=== PATIENT | female | born 1975 | race African-American/Black ===

== ENCOUNTER 2018-04-24 17:02 | Emergency (ER) | payer SELFPAY ==
[~2018-04-24] VITALS: Ht 170.2 cm; Wt 111.0 kg
[2018-04-24 19:11] VITALS: BP 163/114
== END 2018-04-24 19:20 | disposition home or self-care (01) | DRG 156 ==
LOC: ED 17:02
PROC: 3E1B78Z Irrigation of Ear using Irrigating Substance, Via Natural or Artificial Opening (ICD-10-PCS; principal; 2018-04-24)
PROC: 3E1B78Z Irrigation of Ear using Irrigating Substance, Via Natural or Artificial Opening (ICD-10-PCS; 2018-04-24)
DX: H61.23 Impacted cerumen, bilateral (principal); I10 Essential (primary) hypertension; F17.210 Nicotine dependence, cigarettes, uncomplicated

== ENCOUNTER 2020-12-08 08:15 | Observation (INO) | payer SELFPAY ==
[2020-12-08] VITALS (8 sets, daily range): BP systolic 113–166; BP diastolic 49–103
[2020-12-08] MEDS ORDERED: PERCOCET 5/325M1 TAB PO (10:20)
--- NOTE | 2020-12-08 17:16 | NUR ---
RECIEVED REPORT FROM KEHINDE VARGAS
--- NOTE | 2020-12-08 19:30 | NUR ---
PATIENT RESTING IN BED AT THIS TIME-AWAKE AND ALERT. NEW IV SITE WAS STARTED TO LEFT HAND-#22 GAUGE BY RUTH BOUCHER. IVF NS PATENT AND INFUSING AT 125CC/HR ORDERED. ANCEF INFUSING AT THIS TIME ORDERED. VS STABLE. O2 SAT IS 94% ON RA. AFEBRILE. NO COMPLAINTS AT THIS TIME. SAFETY PRECAUTIONS REINFORCED. CALL LIGHT IN REACH. WILL CONT TO MONITOR.
--- NOTE | 2020-12-08 21:25 | NUR ---
PATIENT RESTING IN BED AT THIS TIME-AWAKE BUT RESTING. MEDICATED FOR POST-OP PAIN WITH PERCOCET 5/325MG PO. ABD BINDER APPLIED ORDERED. INCISION TO UMBILICAL REGION INTACT WITH DERMABOND-NO DRAINAGE NOTED. ABD IS SOFT WITH HYPOACTIVE BS. PATIENT HAS BEEN UP TO THE BSC TO VOID QS CLEAR YELLOW URINE. IVF NS PATENT AND INFUSING VIA LEFT HAND SITE AT 125CC/HR. SITE REMAINS HEALTHY. INSTRUCTED PATIENT ON USE OF IS Q1H WHILE AWAKE IN REPS OF 10-WILL REINFORCE NEEDED. LUNGS ARE CLEAR. SCD'S IN PLACE. NO PERIPHERAL EDEMA NOTED. PULSES ARE PALPABLE. SAFETY PRECAUTIONS REINFORCED. CALL LIGHT IN REACH. WILL CONT TO MONITOR.
[2020-12-09] VITALS: BP 114/69
--- NOTE | 2020-12-09 00:30 | NUR ---
PATIENT RESTING IN BED AT THIS TIME-EYES CLOSED AND RESPS ARE EVEN AND UNLABORED. APPEARS SLEEPING AT THIS TIME. IVF PATENT AND INFUSING VIA LEFT HAND IV SITE AT 125CC/HR. CALL LIGHT IN REACH. WILL CONT TO MONITOR.
--- NOTE | 2020-12-09 03:08 | NUR ---
RESTING QUIETLY AT THIS TIME WITH EYES CLOSED. RESPS ARE EVEN AND UNLABORED. IVF NS PATENT AND INFUSING VIA LEFT HAND SITE. CALL LIGHT IN REACH. WILL CONT TO MONITOR.
[2020-12-09 04:00] VITALS: BP 118/81
--- NOTE | 2020-12-09 04:29 | NUR ---
PATIENT RESTING IN BED AT THIS TIME-HAS BEEN UP TO THE BSC TO VOID QS CLEAR YELLOW URINE. IV SITE TO LEFT HAND REMAINS HEALTHY AT THIS TIME. IVF NS PATENT AND INFUSING AT 125CC/HR. ABD BINDER REMAINS IN PLACE. TAKING PO FLUIDS. CALL LIGHT IN REACH. WILL CON TO MONITOR.
--- NOTE | 2020-12-09 07:00 | NUR ---
RECIEVED REPORT FROM KEHINDE MOORE
[2020-12-09 07:43] VITALS: BP 126/77
--- NOTE | 2020-12-09 07:43 | NUR ---
PT RESTING IN SEMI FOWLERS POSITION. PT IS A/O X3. ASSESSMENT COMPLETED. BP 126/77, HR 73, O2 99% ON ROOM AIR. RESPIRATIONS ARE EVEN AND UNLABORED WITH NO DISTRESS NOTED. LUNG SOUNDS ARE CLEAR. HEART RHYTHM NORMAL. BOWEL SOUNDS ARE ACTIVE.LBM 12/07/20. STRONG PULSES. SCDS IN PLACE. SURGICAL SITE TO SPIKE CARDENAS NOTED. ABD BINDER IN PLACE. PT COMPLAINS OF 2/10 PAIN AT THIS TIME, REFUSES ANY MEDICAITONS. #22H LH INFUSING WITH IVF PER ORDER, SITE REMAINS HEALTHY AND PATENT. ALL SAFETY PRECAUTIONS ARE IN PLACE WITH CALL LIGHT IN REACH. WILL CONTNIUE TO MONITOR
[2020-12-09 08:27] VITALS: BP 126/77
--- NOTE | 2020-12-09 08:31 | NUR ---
#22G LH OCCULDED. NEW IV TO BE STARTED IF PT IS NOT DC.
[2020-12-09] MEDS ORDERED: NORVASC5 M1 PO (09:12)
--- NOTE | 2020-12-09 09:12 | NUR ---
DR GLEZ AT BEDSIDE
--- NOTE | 2020-12-09 10:55 | NUR ---
PT EDUCATED IN DC INSTRUCTIONS AND STEWART MEDICATIONS. SCHEDULE FOR DR WORTHY 12/18/20 @1115. PT VERBALIZED UNDERSTANDING. CARD FOR AMA OFFICE IF WANTING PCP. IV REMOVED DUE TO BEING OCCULDED. PT STATES TRANSPORTATION WILL ARRIVED AROUND 1500. ALL SAFETY PRECAUTIONS ARE IN PLACE WITH CALL LIGHT IN REACH. WILL CONTINUE TO MONITOR
--- NOTE | 2020-12-09 12:48 | NUR ---
PT COMPLAINS OF GENERALIZED PAIN. PERCOCET ADMINISTERED. RESPIRATIONS ARE EVEN AND UNLABORED WITH NO DISTRESS NOTED. TRANSPORTATION TO ARRIVED AT 1500. PT DENIES OF ANY ADDITIONAL NEEDS AT THIS TIME. ALL SAFETY PRECAUTIONS ARE IN PLACE WITH CALL LIGHT IN REACH. WILL CONTNUE TO MONITOR.
--- NOTE | 2020-12-09 15:41 | NUR ---
Discharge instructions given. Patient verbalizes understanding of same. Discharged in stable condition via Wheelchair to Home with staff. All belongings sent with pt. PT DC HOME VIA WHEELCHAIR IN STABLE CONDITION ACCOMPAINED BY LATONYA BERNABE WITH ALL DC INSTRUCTIONS AND NEW BELONGINGS.
== END 2020-12-09 15:41 | disposition home or self-care (01) | DRG 355 ==
LOC: ORM 08:15 → MS2 12:30 → ORM 16:01 → MS2 16:02
PROVIDERS: ADMIT Surgery; ATTEND Internal Medicine
PROC: 0WQF0ZZ Repair Abdominal Wall, Open Approach (ICD-10-PCS; principal; 2020-12-08)
DX: K42.0 Umbilical hernia with obstruction, without gangrene (principal); I97.3 Postprocedural hypertension; F17.200 Nicotine dependence, unspecified, uncomplicated; Z20.822 Contact with and (suspected) exposure to COVID-19
CPT/HCPCS: J0131

== ENCOUNTER 2023-11-21 07:11 | Day surgery (SDC) | payer OTHER ==
[~2023-11-21] VITALS: Ht 170.2 cm; Wt 122.5 kg
[~2023-11-21 07:11] MED LIST: ACID CONTROLLER10 MG PO; LEVOTHYROXIN75 MC1 PO; NORVASC PO; NORVASC5 M1 PO; PERCOCET 5/325M1 TAB PO
[2023-11-21] MEDS ORDERED: LACTATED RINGER'S 1,000 ML IV ONE ×2 (07:32→12:25)
[2023-11-21] MEDS ORDERED: SODIUM CHLORIDE 0.9% 100 ML IV ONE (07:32)
[2023-11-21] MEDS ORDERED: FAMOTIDINE 10MG/ML 2ML SDV IV ONE (07:32)
[2023-11-21] MEDS ORDERED: ceFAZolin Sodium 2 GM/VIAL SDV ONE (07:32)
[2023-11-21] MEDS ORDERED: LIDOcaine HCl 1% (Local Anesth.) 20 ML VIAL ONE (07:34)
[2023-11-21] MEDS ORDERED: PERCOCET 5/325M1 TAB PO (09:30)
[2023-11-21] MEDS ORDERED: HYDROmorphone HCL 2 MG/AMP ONE (09:58)
[2023-11-21 13:40] VITALS: BP 121/76
[2023-11-21] MEDS ORDERED: ACETAMINOPHEN 1,000 MG/100 ML VIAL IV ONE (18:12)
[2023-11-21] MEDS ORDERED: hydrALAZINE HCL 20 MG/ML VIAL(1 ML) IV ONE (18:12)
[2023-11-21] MEDS ORDERED: GLYCOPYRROLATE 0.2 MG/ML IV ONE (18:12)
[2023-11-21] MEDS ORDERED: SUCCINYLCHOLINE CHLORIDE 20 MG/ML 10ML VIAL IV ONE (18:12)
[2023-11-21] MEDS ORDERED: KETOROLAC TROMETHAMINE 30 MG/ML SDV IV ONE (18:12)
[2023-11-21] MEDS ORDERED: LABETALOL HCL 100 MG/20 ML VIAL IV ONE (18:12)
[2023-11-21] MEDS ORDERED: DEXAMETHASONE SODIUM PHOSPHATE PF 10 MG/ML SDV IV ONE (18:12)
[2023-11-21] MEDS ORDERED: PROPOFOL 200 MG/20 ML VIAL IV ONE (18:12)
[2023-11-21] MEDS ORDERED: LACTATED RINGER'S 1,000 ML BAG IV ONE (18:12)
[2023-11-21] MEDS ORDERED: ONDANSETRON HCl 4 MG/2 ML SDV IV ONE (18:12)
[2023-11-21] MEDS ORDERED: LIDOCAINE HCL 2% 2ML SDV IV ONE (18:12)
[2023-11-21] MEDS ORDERED: ROCURONIUM BROMIDE 10 MG/ML 5ML VIAL IV ONE (18:12)
[2023-11-21] MEDS ORDERED: SUGAMMADEX SODIUM 200 MG/2 ML SDV IV ONE (18:12)
== END 2023-11-21 13:31 | disposition home or self-care (01) | DRG 355 ==
LOC: ORM 07:11
PROVIDERS: ATTEND Surgery
PROC: 0WUF4JZ Supplement Abdominal Wall with Synthetic Substitute, Percutaneous Endoscopic Approach (ICD-10-PCS; principal; 2023-11-21)
DX: K43.2 Incisional hernia without obstruction or gangrene (principal); I10 Essential (primary) hypertension; D25.9 Leiomyoma of uterus, unspecified
CPT/HCPCS: J0131; J0690; J1100